=== PATIENT | female | born 1970 | race African-American/Black ===

== ENCOUNTER 2023-07-08 10:19 | Emergency (ER) | payer OTHER ==
[~2023-07-08] VITALS: Ht 154.9 cm; Wt 45.0 kg
[2023-07-08 10:26] VITALS: O2SAT 98
[2023-07-08] MEDS ORDERED: SODIUM CHLORIDE 0.9% 1000ML BAG (SEPSIS BOLUS) IV ONE (10:45)
[2023-07-08 12:55] LABS: ALANINE AMINOTRANSFERASE 223 IU/L (10-49); ALBUMIN 2.1 g/dL (3.2-4.8); ASPARTATE AMINOTRANSFERASE 271 IU/L (<34); BILIRUBIN TOTAL 0.5 mg/dL (0.1-1.0); CALCIUM 6.7 mg/dL (8.7-10.4); CARBON DIOXIDE 18 mEq/L (21-32); CHLORIDE 111 mEq/L (98-107); CREATININE 0.6 mg/dL (0.6-1.0); GLUCOSE 65 mg/dL (70-105); POTASSIUM 2.9 mEq/L (3.5-5.1); PROTEIN TOTAL 4.4 g/dL (6.0-8.3); SODIUM 143 mEq/L (136-145); TROPONIN I HIGH SENSITIVITY 7 ng/L (3.0-34); UREA NITROGEN BLOOD 9 mg/dL (9-23)
[2023-07-08] MEDS ORDERED: DEXTROSE 50% WATER 50ML SYRINGE IV ONE (13:45)
[2023-07-08 13:51] LABS: BASOPHILS % 0.2 % (0.0-2.0); EOSINOPHILS % 0.1 % (0.0-5.0); HEMATOCRIT. 29.9 % (36.0-48.0); HEMOGLOBIN. 9.8 g/dL (12.0-16.0); LYMPHOCYTES % 14.6 % (20.0-50.0); MEAN CORPUSCULAR HEMOGLOBIN 32.3 pg (28.0-32.0); MEAN CORPUSCULAR HGB CONC 32.9 g/dL (31.0-37.0); MEAN CORPUSCULAR VOLUME 98.2 fL (81.0-99.0); MEAN PLATELET VOLUME 7.6 fl (7.4-10.4); MONOCYTES % 5.7 % (2.0-8.0); NEUTROPHILS % 79.4 % (40.0-76.0); PLATELET 224 x1000/uL (130-400); RED BLOOD CELL COUNT 3.05 mill/uL (4.2-5.4); RED CELL DISTRIBUTION WIDTH 16.1 % (11.6-14.6); WHITE BLOOD COUNT 4.5 x1000/uL (4.5-11.0)
[2023-07-08] MEDS ORDERED: ONDANSETRON HCL 4MG/2ML INJ IV ONE (14:00)
[2023-07-08 14:11] LABS: INR 1.5; PROTHROMBIN TIME 15.3 sec (9.6-11.0)
[2023-07-08] MEDS ORDERED: METOCLOPRAMIDE HCL 10MG/2ML VIAL IV ONE (14:15)
[2023-07-08] MEDS ORDERED: ONDANSETRON HCL 4MG/2ML INJ IM ONE (15:00)
[2023-07-08] MEDS ORDERED: POTASSIUM CHLORIDE 20MEQ TABLET SR PO ONE (16:45)
[2023-07-08] MEDS ORDERED: POTASSIUM CHLORIDE INJ 40 MEQ in DEXT 5% WATER 250 ML IV ONE (16:45)
[2023-07-08] MEDS ORDERED: KCL 20MEQ/100ML X 2 FOR TOTAL KCL 40MEQ/200ML IV SCH (17:00)
[2023-07-08] MEDS ORDERED: SODIUM CHLORIDE 0.9% 500 ML IV ONE (17:15)
[2023-07-08 20:15] VITALS: BP 92/63; PULSE 76; RESP 20; TEMP 100.8
== END 2023-07-08 22:38 | disposition short-term general hospital (02) ==
LOC: ER 10:19
DX: E46 Unspecified protein-calorie malnutrition (principal); R62.7 Adult failure to thrive; D50.9 Iron deficiency anemia, unspecified; Z20.822 Contact with and (suspected) exposure to COVID-19
CPT/HCPCS: 80053; 82962; 83605; 85025; 85610; 87040; 84484; 87804 ×2; 87077; 36415; 84145; 71045; 74176; 93005; 96361; 96372; 96374; 99285; 87426; J2405; J3480; J7040; J7030; C9803; Z7610 ×3; J7060